=== PATIENT | female | born 1980 | race Caucasian/White ===

== ENCOUNTER 2022-05-09 09:23 | Outpatient (CLI) | payer BC, SELFPAY | END 2022-05-09 09:24 | disposition home or self-care (01) | LOC: NFLDREF 09:25 | PROVIDERS: Visit Provider Obstetrics & Gynecology | DX: Z34.91 Encounter for supervision of normal pregnancy, unspecified, first trimester (principal) | CPT/HCPCS: 84702 ==

== ENCOUNTER 2022-05-26 07:17 | Outpatient (CLI) | payer BC, SELFPAY ==
--- NOTE | 2022-05-26 07:15 | CRLHL7_ITS ---
For Patients: As a result of the Century Cures Act, medical imaging exams and procedure reports are released immediately into your electronic medical record. You may view this report before your referring provider. If you have questions, please contact your health care provider. INDICATION: First trimester scan, establish dates. COMPARISON: None. TECHNIQUE: Real-time fournier-scale imaging of the pelvis was performed. FINDINGS: Sonographic imaging demonstrates a single living intrauterine gestation. The embryo demonstrates a regular cardiac rate measuring 123 beats per minute. The embryo`s crown-rump length measurement of 0.7 cm corresponds to a gestational age of 6 weeks 4 days with a sonographic due date of 01/15/2023. There is a normal-appearing yolk sac. There are no gross abnormalities noted within the embryo at this early state of development. The gestational sac has a normal appearance. There is no perigestational hemorrhage. The amount of fluid within the sac appears appropriate for gestational age. The cervix is closed. Small posterior fundal intramural leiomyoma is present measuring 1.4 cm. The ovaries are of normal size. There are no suspicious fluid collections noted in the cul-de-sac. IMPRESSION: Normal first trimester OB ultrasound exam. Gestational age calculated at 6 weeks 4 days with a sonographic due date of 01/15/2023. Small incidental fibroid measuring 1.4 cm. Dictated by Jayme Alfaro MD @ 05/26/2022 9:43:30 AM (Electronically Signed)
== END 2022-05-26 07:18 | disposition home or self-care (01) ==
LOC: US 07:17
PROVIDERS: PCP Physician Assistant; Visit Provider Obstetrics & Gynecology
DX: Z34.90 Encounter for supervision of normal pregnancy, unspecified, unspecified trimester (principal)
CPT/HCPCS: 76817

== ENCOUNTER 2022-05-26 08:16 | Outpatient (CLI) | payer BC, SELFPAY ==
[2022-05-26 11:52] LABS: Hepatitis B Surface Antigen* Negative (Negative)
[2022-05-26 12:10] LABS: Hepatitis C Virus Antibody* Negative (Negative)
[2022-05-26 14:51] LABS: HIV 1/2/P24 Combo Screen* Negative (Negative)
[2022-05-26 15:36] LABS: Chlamydia DNA Amplified* NOT DETECTED (No Detected); GC DNA Amplified* NOT DETECTED (No Detected)
[2022-05-28 05:39] LABS: Rubella Antibody IgG 12.3 IU/mL
[2022-05-28 12:47] LABS: Rapid Plasma Reagin (RPR) Non Reactive (Non Reactive)
== END 2022-05-26 08:17 | disposition home or self-care (01) ==
PROVIDERS: PCP Physician Assistant; Visit Provider Registered Nurse
DX: Z34.91 Encounter for supervision of normal pregnancy, unspecified, first trimester (principal); Z3A.01 Less than 8 weeks gestation of pregnancy
CPT/HCPCS: 76817; 81420; 86592; 86703; 86762; 86803; 86850; 86900; 86901; 87086; 87340; 87491; 87591; 87624; 88175

== ENCOUNTER 2022-08-30 12:15 | Outpatient (CLI) | payer BC, SELFPAY ==
--- OUTSIDE RECORDS SUMMARY | 2022-08-30 12:17 | XMS_ITS | Clinical Summary ---
:1980 Author Organization [facility] [place] [address] Care Team Providers Name Role Phone Pcp, No Primary Care Provider Unavailable Allergies Active Allergy Reactions Severity Noted Date Comments Hydrocortisone *Unknown 03/14/2021 Sulfa (Sulfonamide Antibiotics) Hives 7 Medications Medication Sig Dispensed Refills Start Date End Date Status fexofenadine (JORDAN) Take 1 tablet by 0 11/23/2015 Active 180 mg tablet mouth once daily if needed for Allergy Symptoms. multivitamin (MVI) Take 1 tablet by 0 01/23/2018 Active tablet mouth once daily. cholecalciferol (VITAMIN Take 1 capsule 0 09/10/2020 Active D) 1,000 unit capsule by mouth once daily. Active Problems Problem Noted Date Personal history of malignant neoplasm of cervix uteri 01/24/2017 Overview: 2001, cone and LEEP for MANAV 3 in 2004; S ee Telephone encounter dated 01/23/2017: Provider Plan: pap annually x 20 years; Due-01/2019 Vitamin D deficiency 10/19/2015 Allergic rhinitis, cause unspecified 05/12/2011 Other acne 09/03/2009 ASCUS with positive high risk HPV cervical 04/05/2005 Overview: 04/2005 Resolved Problems Problem Noted Date Resolved Date Adjustment disorder with mixed anxiety and depressed mood 09/03/2009 Immunizations Name Administration Dates Next Due COVID-19 vaccine ([employer] 10/31/2021, 04/20/2021, 30mcg/0.3mL) PF, MDV Human Papilloma Virus Vaccine 11/20/2007, 07/19/2007, 200607/17/2007 MMR 03/30/1993 Td (Age >=7 Years) 04/20/2005, 06/26/1995 Tdap 03/04/2013 Family History Medical History Relation Name Comments Asthma Brother 1 Allergies Brother 2 Alcohol/Drug Father Psychiatric illness Father suicide Arthritis Maternal Grandmother Allergies Mother Asthma Mother NINA disease Mother Hypothyroidism Mother Osteoporosis Mother Asthma Sister 1 Allergies Sister 2 Relation Name Status Comments Brother 1 Brother 2 Father Maternal Grandmother Mother Sister 1 Sister 2 Social History Tobacco Use Types Packs/Day Years Used Date Current Every Day Smoker Cigarettes 0.25 11 Smokeless Tobacco: Never Used Tobacco Cessation: Counseling Given: Yes Comments: ATQ 05/16/07, 09/03/09, 2012, ATQ 2013 Alcohol Use Standard Drinks/Week Comments Yes 0 (1 standard drink = 0.6 oz pure alcoho l) occasionally Sex Assigned at Date Recorded Not on file Obstetrics History Para Term AB IAB SAB Ectopic Multiple Living Live Births 0 0 0 0 0 0 0 0 0 0 Last Filed Vital Signs Vital Sign Reading Time Taken Comments Blood Pressure 113/75 06/14/2021 7:52 AM CDT Pulse 86 06/14/2021 7:52 AM CDT Temperature 37 ??C (98.6 ??F) 03/14/2021 11:51 AM CDT Respiratory Rate - - Oxygen Saturation 98% 06/14/2021 7:52 AM CDT Inhaled Oxygen Concentration - - Weight 78 kg (172 lb) 06/14/2021 7:52 AM CDT Height 164.5 cm (5' 4.76) 06/14/2021 7:52 AM CDT Body Mass Index 28.83 06/14/2021 7:52 AM CDT Plan of Treatment Health Maintenance Due Date Last Done Comments Pneumococcal series for age 19-64 1987 (1 - PCV) Hepatitis C screening for age 0301/13/1999 18-79 Depression screening for age 12+ 09/10/2021 09/10/2020, 02/2019, 01/23/2018, Additional history exists COVID-19 vaccine series (4 - 12/26/2021 10/31/2021, 021, Booster for Pfizer series) 03/30/2021 BMI (ht and wt on same day) for 06/14/2022 06/14/2021, 11/0 04/2020, age 18+ 06/16/2020, Additional history exists Influenza for age 9-49 07/06/2022 Tetanus booster 03/04/2023 03/04/2013, 04/20/2005, 06/26/1995 Pap test for age 21-65 05/26/2025 05/26/2022, 05/26/2022, 08/08/2019, Additional history exists Tdap Completed 03/04/2013 Results Not on filefrom Last 3 Months Insurance Payer Benefit Plan / Subscriber ID Effective Dates Phone Addre ss Type Group [employer] [place] [id number] 2017-Present [address] [place] [address] (Home) ONEL CHOWDHURY [id number] Care Teams Keno Writer/Runner Relationship Specialty Start Date End Date Pcp, No PCP - General 10/11/18 .
== END 2022-08-30 12:16 | disposition home or self-care (01) ==
LOC: US 12:15
PROVIDERS: PCP Physician Assistant; Visit Provider Pediatrics Neonatal-Perinatal Medicine
DX: O09.519 Supervision of elderly primigravida, unspecified trimester (principal); O09.512 Supervision of elderly primigravida, second trimester; Z3A.20 20 weeks gestation of pregnancy
CPT/HCPCS: 76811

== ENCOUNTER 2022-09-14 11:13 | Outpatient (CLI) | payer BC, SELFPAY ==
--- NOTE | 2022-09-14 11:00 | CRLHL7_ITS ---
For Patients: As a result of the Century Cures Act, medical imaging exams and procedure reports are released immediately into your electronic medical record. You may view this report before your referring provider. If you have questions, please contact your health care provider. INDICATION: Twenty-two weeks with left lower quadrant pain. TECHNIQUE: Ultrasound renal and bladder complete. Guallpa-scale and color Doppler sonographic images were acquired of the kidneys and urinary bladder. COMPARISON: None. FINDINGS: Right kidney: 12 cm. Left kidney: 11 cm. Normal echotexture and cortex. No suspicious masses, stones, or hydronephrosis. Bladder: Normal in caliber and appearance. Color Doppler images demonstrate bilateral ureteral jets. Prevoid bladder volume is 41 mL and postvoid volume is 4 mL. IMPRESSION: Unremarkable renal ultrasound. Dictated by Alonzo Jane MD @ 09/14/2022 12:34:03 PM (Electronically Signed)
--- OUTSIDE RECORDS SUMMARY | 2022-09-14 11:14 | XMS_ITS | Clinical Summary ---
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
== END 2022-09-14 11:14 | disposition home or self-care (01) ==
LOC: US 11:13
PROVIDERS: PCP Physician Assistant; Visit Provider Physician Assistant
DX: O26.892 Other specified pregnancy related conditions, second trimester (principal); R10.9 Unspecified abdominal pain; Z3A.22 22 weeks gestation of pregnancy
CPT/HCPCS: 76770; 87086

== ENCOUNTER 2022-10-24 08:12 | Outpatient (CLI) | payer BC, SELFPAY ==
[2022-10-26 08:42] LABS: Rapid Plasma Reagin (RPR) Non Reactive (Non Reactive)
== END 2022-10-24 08:13 | disposition home or self-care (01) ==
LOC: NFLDREF 08:12
PROVIDERS: PCP Physician Assistant; Visit Provider Obstetrics & Gynecology
DX: Z34.93 Encounter for supervision of normal pregnancy, unspecified, third trimester (principal); Z3A.28 28 weeks gestation of pregnancy
CPT/HCPCS: 86592

== ENCOUNTER 2022-10-31 08:28 | Outpatient (CLI) | payer BC, SELFPAY ==
[2022-10-31 08:39] LABS: Glucose Fasting Check 96 mg/dl (60-115)
[2022-10-31 12:38] LABS: Glucose 1 Hour Gest 165 mg/dl (70-180)
[2022-10-31 12:39] LABS: Glucose GTT-Gestational 3 Hr 126 mg/dl (70-140)
== END 2022-10-31 08:29 | disposition home or self-care (01) ==
PROVIDERS: PCP Physician Assistant; Visit Provider Obstetrics & Gynecology
DX: Z34.90 Encounter for supervision of normal pregnancy, unspecified, unspecified trimester (principal); R89.9 Unspecified abnormal finding in specimens from other organs, systems and tissues
CPT/HCPCS: 82951; 82952

== ENCOUNTER 2022-12-07 08:04 | Outpatient (CLI) | payer BC, SELFPAY ==
--- NOTE | 2022-12-07 08:15 | CRLHL7_ITS ---
For Patients: As a result of the Cures Act, medical imaging exams and procedure reports are released immediately into your electronic medical record. You may view this report before your referring provider. If you have questions, please contact your health care provider. INDICATION: Third trimester scan, evaluate growth. Advanced maternal age. COMPARISON: 08/30/2022 TECHNIQUE: Real time fournier scale imaging of the fetus was performed. FINDINGS: Sonographic imaging demonstrates a single living intrauterine gestation. Fetus demonstrates a regular cardiac rate of 145 beats per minute. Fetus has an oblique breech position. The placenta lies posteriorly. Amniotic fluid volume appears normal and there is a single deepest vertical pocket: 6.6 cm. The estimated weight is 2616gm which lies at the 64th %. On the prior OB ultrasound exam dated 08/30/2022 the estimated weight was at the 69th%. BPD 45th percentile. HC 48th percentile. AC 88th percentile. FL 21st percentile. The HC/AC ratio measures 1.00 range (0.93-1.11). IMPRESSION: Sonographic gestational age 35 weeks 0 days and sonographic due date of 01/11/2023. Good correlation with dates. Normal interval growth. Estimated weight 64th percentile. Abdominal circumference 88th percentile. Dictated by Jayme Alfaro MD @ 12/07/2022 2:17:26 PM (Electronically Signed)
== END 2022-12-07 08:05 | disposition home or self-care (01) ==
LOC: US 08:05
PROVIDERS: PCP Physician Assistant; Visit Provider Obstetrics & Gynecology
DX: O09.513 Supervision of elderly primigravida, third trimester (principal); Z3A.35 35 weeks gestation of pregnancy
CPT/HCPCS: 76816

== ENCOUNTER 2022-12-22 09:38 | Outpatient (CLI) | payer BC, SELFPAY ==
[2022-12-23 14:26] LABS: Strep B DNA Probe NEGATIVE (Negative)
[2022-12-24 03:50] LABS: Strep B Pen/Amox Allergy No
== END 2022-12-22 09:39 | disposition home or self-care (01) ==
LOC: NFLDREF 09:38
PROVIDERS: PCP Physician Assistant; Visit Provider Obstetrics & Gynecology
DX: O09.523 Supervision of elderly multigravida, third trimester (principal); Z3A.36 36 weeks gestation of pregnancy
CPT/HCPCS: 87081; 87653

== ENCOUNTER 2023-01-10 08:09 | Inpatient (IN) | payer BC, SELFPAY ==
[2023-01-10] VITALS (7 sets, daily range): BP systolic 117–145; BP diastolic 58–80; PULSE 72–96; RESP 0–20; TEMP 36.8–37; BMI 34.7
[2023-01-10] MEDS: miSOPROStoL 25 MCG/0.25 TABLET VAGINAL ×4 (09:10→21:13)
[2023-01-10 09:21] LABS: SARS PCR* Negative SARS-CoV-2 (Negative)
[2023-01-10 10:00] LABS: Basophils Absolute Auto 0.01 K/uL (0.00-0.30); Basophils Percent Auto 0.1 % (0.0-3.0); Eosinophils Percent Auto 1.2 % (0.0-7.0); Hematocrit 35.1 % (33.0-51.0); Hemoglobin* 11.8 gm/dL (12.0-16.0); Immature Granulocytes Abs Auto 0.05 K/uL (0.00-0.30); Immature Granulocytes Pct Auto 0.6 %; Mean Corpuscular HGB Conc 34 gm/dL (32-36); Mean Corpuscular Hemoglobin 30 pg (26-34); Mean Corpuscular Volume 89 fL (80-100); Monocytes Percent Auto 7.7 % (0.0-11.0); Neutrophils Percent Auto 68.4 % (42.0-72.0); Platelet Count* 226 K/uL (140-440); RDW Coefficient of Variation % 14.5 % (11.5-15.5); Red Blood Count 3.95 m/uL (4.00-5.20); White Blood Count* 8.19 K/uL (4.50-11.00)
[2023-01-10 10:03] LABS: Slide Review Reflex No
[2023-01-10] MEDS: CALCIUM CARBONATE 500 MG CHEW PO ×3 (12:18→23:25)
--- NOTE | 2023-01-10 18:39 | W.PM.LDBA ---
Subjective History of Present Illness Time Seen by Provider: 09:00 Date Seen: 01/10/23 Narrative: Patient is being admitted to Labor and Delivery for induction of labor secondary to AMA. She is a 42 year old at 39 3/7 weeks gestation. Her full history and physical was dictated by Dr. Marsh on 12/26/22. Please see this for details. G2, P0 010 Spouse ( 09/24/22): Dilip. Baby: boy 1. Conceived on Clomid! 2. Advanced maternal age. Recommended daily baby aspirin starting at 12 weeks. MaterniT : no increased risk for aneuploidy. Male. Level 2 u/s, scheduled: 08/30/2022, normal USN for EFW 12/07/2022: Breech/Oblique, SDP 6.6cm. EFW: 2616 g, 5 lb 12 oz, 64%. BPD 45%, HC 48%, AC 88%, FL 21%. on 12/26/22 by bedside US VERTEX! Weekly NSTs starting at 36 weeks Recommend delivery at 39-40 weeks 3. Tobacco use. Has decreased to 1-2 cigarettes per day. Working on quitting. 4. History of abnormal Pap with LEEP and cone in 2000 and 2004. Pap performed at 1st OB. 05/26/22: ASCUS pap, neg HPV: pap w/ HPV at her 6 week pp visit. 5. History of depression in 2004. Has not been on medications since 2005. Doing well. 6. Fibroid on 1st ultrasound measuring 1.2 x 0.9 x 1.4 cm 7. 10/24/22: Elevated 1hr GTT: 155 3hr GTT 10/31/22: F 94, 1hr 165, 2hr 154, 3hr 126: All normal. Flu: Declines COVID: Completed and boosted x1 TDap: 11/09/22 Covid infection, 09/27/22 OB - Problem Based A/P Additional Plan (1) AMA (advanced maternal age) primigravida 35+: Status: Acute Delivery/Labor/Induction Plan Plan: induction Induction method: per misoprostol protocol (vaginal) OB Exam Physical Exam Vital signs: Temp Pulse Resp BP 98.6 F 75 16 133/74 01/10/23 15:17 01/10/23 15:17 01/10/23 15:17 01/10/23 15:17 Detailed Labor and Delivery Exam Patient Gravid: Yes Dilation (cm): 0 Effacement (%): 50 Cervix position: anterior Consistency: firm Contraction Frequency: none Fetus (Single) Station: -3 Heart Rate Baseline: 150 Monitor Accelerations: Present Monitor Decelerations: None Tanning Wheel Filler Variability: Moderate (6-25)
--- NOTE | 2023-01-10 18:42 | PM.OBPNL ---
Subjective Time Seen by Provider: 18:42 Date Seen: 01/10/23 Narrative: Patient feeling uterine cramping, like bad menstrual cramps. Fetus remains active. Has had a total of 3 doses vaginal misoprostol so far today. Objective Vital Signs: Last Vital Signs Temp 98.6 F 01/10/23 15:17 Pulse 75 01/10/23 15:17 Resp 16 01/10/23 15:17 BP 133/74 01/10/23 15:17 Pelvic Exam Dilation (cm): 1 (loose) Effacement (%): 85 Station: -3 Comments: Anterior Contractions Monitor mode: External Contraction Frequency: 2 minutes Contraction pattern: Regular Contraction intensity: Moderate Pitocin Rate (mU/min): 0 Assessment Station: -3 (? OP position) Heart Rate Baseline: 150 Monitor Accelerations: Present Monitor Decelerations: Variable (occasional) Labor Progress: Good pogress Plan Plan: Expectant management for now. Continue misoprostol per protocol if contractions space.
[2023-01-10] MEDS: LACTATED RINGERS 1000 ML 1,000 ML 450 ML IV (23:19)
[2023-01-11] VITALS (67 sets, daily range): BP systolic 97–150; BP diastolic 48–76; PULSE 79–117; RESP 16–18; TEMP 36.4–37.1; O2SAT 93–100
--- NOTE | 2023-01-11 02:02 | P.OBPN_ITS ---
Subjective Time Seen by Provider: 02:02 Date Seen: 01/11/23 Narrative: Patient rates contractions at 6/10. Has had 4 doses of vaginal misoprostol for cervical ripening. Objective Vital Signs: Last Vital Signs Temp 98.3 F 01/10/23 21:20 Pulse 72 01/10/23 21:20 Resp 20 01/10/23 21:20 BP 117/58 L 01/10/23 21:20 Pelvic Exam Dilation (cm): 1 (loose) Effacement (%): 100 Station: -3 Comments: ballotable, cervical rim feels scarred due to prior LEEP/cone Contractions Monitor mode: External Contraction pattern: Regular Contraction intensity: Moderate Pitocin Rate (mU/min): 0 Assessment Station: -3 (? OP position) Status: Category ll Heart Rate Baseline: 150 Residential Variability: Moderate (6-25) Monitor Accelerations: Present Monitor Decelerations: Variable (occasional) Tracing Comments: Periods of late decelerations, mixed with variables, that resolve Plan Plan: Unable to AROM and place internals due to ballotable station. Additional misoprostol not indicated due to occasional FHR decelrations. Pitocin administration not yet indicated due to unfavorable Zaidi score. Cook catheter placed, 60 mL in uterine balloon, 40 mL in vaginal balloon. Continue close monitoring.
[2023-01-11] MEDS: hydrOXYzine pamoate 25 MG CAPSULE 100 MG PO (02:06)
[2023-01-11] MEDS: LACTATED RINGERS 1000 ML 1,000 ML 325 ML IV (03:08)
[2023-01-11] MEDS: ROPIVACAINE 0.2% 100 ml 100 ML 12 MG EPIDURAL (03:44)
[2023-01-11] MEDS: ROPIVACAINE 0.2 % PF 10 ML INJ 20 MG EPIDURAL (03:44)
[2023-01-11] MEDS: LIDOCAINE 2% (PF) 5 ML VIAL EPIDURAL (03:44)
--- NOTE | 2023-01-11 03:44 | PM.ANBPRC ---
[facility] Medical History (Updated 06/23/22 @ 13:06 by Erum Costa MD) Allergic rhinitis (05/12/11) AMA (advanced maternal age) primigravida 35+ History of abnormal cervical Pap smear History of depression History of hysterosalpingogram History of LEEP (loop electrosurgical excision procedure) of cervix complicating Other acne (09/03/09) care Vitamin D deficiency (10/19/15) Surgical History (Updated 05/26/22 @ 09:16 by Diane Osorio CNP) History of cone biopsy of cervix Status post dilation and curettage (08/2021) Social History Smoking Status: Current every day smoker Little interest or pleasure in doing things: several days Feeling down, depressed, or hopeless: not at all Meds Home Medications and Allergies Home Medications Medication Instructions Recorded Confirmed Type docosahexaenoic acid 200 mg 200 mg PO DAILY 05/26/22 01/10/23 History capsule ( DHA) acetaminophen 500 mg tablet 1,000 mg PO Q6H PRN 06/23/22 01/10/23 History (Tylenol Extra Strength) loratadine 10 mg tablet 10 mg PO QDAY 06/23/22 01/10/23 History aspirin 81 mg capsule 81 mg PO QDAY 07/20/22 01/10/23 History cholecalciferol (vitamin D3) 25 25 mcg PO QDAY 09/14/22 01/10/23 History mcg (1,000 unit) capsule magnesium 250 mg tablet 500 mg PO QHS 09/14/22 01/10/23 History ascorbic acid (vitamin C) 1,000 mg 1 g PO Q6H 09/26/22 01/10/23 History capsule calcium carbonate 500 mg calcium 1,000 mg PO QDAY 12/07/22 01/10/23 History (1,250 mg) chewable tablet famotidine-Ca carb-mag hydrox 10 1 tab PO QDAY PRN 01/05/23 01/10/23 History mg-800 mg-165 mg chewable tablet (Pepcid Complete) Allergies Allergy/AdvReac Type Severity Reaction Status Date / Time Sulfa (Sulfonamide Allergy Severe Hives Verified 01/10/23 08:36 Antibiotics) hydrocortisone Allergy Mild Verified 01/10/23 08:36 Results Labs Labs: Laboratory Results - last 24 hr 01/10/23 01/10/23 01/10/23 08:35 09:49 09:49 WBC 8.19 RBC 3.95 L Hgb 11.8 L Hct 35.1 MCV 89 MCH 30 MCHC 34 RDW Coeff of Star 14.5 Plt Count 226 Neut % (Auto) 68.4 Lymph % (Auto) 22.0 [place] % (Auto) 7.7 Eos % (Auto) 1.2 Baso % (Auto) 0.1 Neut # (Auto) 5.60 Lymph # (Auto) 1.80 [place] # (Auto) 0.60 Eos # (Auto) 0.10 Baso # (Auto) 0.01 SARS-CoV-2 (PCR) Negative SARS-CoV-2 Blood Type O Positive Antibody Screen NEGATIVE Vital Signs Vital Signs: Last Vital Signs Temp 98.3 F 01/10/23 21:20 Pulse 108 H 01/11/23 03:42 Resp 20 01/10/23 21:20 BP 125/62 01/11/23 03:42 Pulse Ox 100 01/11/23 03:43 Weight: 94.665 kg Height: 165.1 cm Anesthesia Procedures Epidural Insertion Patient Location: OB Start Time: 03:00 Stop Time: 03:45 Start Date: 01/11/23 Stop Date: 01/11/23 Reason for Block: procedure for pain Patient Position: sitting Performed By: Festus Camilo Preanesthetic Checklist: IV checked, risks and benefits discussed, surgical consent, monitors and equipment checked, pre-op evaluation, timeout performed and anesthesia consent Prep: chlorhexidine gluconate Monitoring: blood pressure monitoring, continuous pulse oximetry and heart rate Approach: midline Vertebral Space: lumbar (1-5) Epidural Technique: KASIE air Needle Type: Tuohy needle Injection Technique: continuous catheter Needle gauge: 17 Needle Length (cm): 10 cm Needle Insertion Depth (cm): 7 Catheter Gauge: 19 Catheter Type: multi-orifice Catheter at skin depth (cm): 13 Test Dose Result: negative and lidocaine 1.5% with epinephrine 1 to 200,000
[2023-01-11] MEDS: PHENYLEPHRINE 100 MCG/ML SYRINGE IVP ×2 (03:56→04:28)
[2023-01-11] MEDS: ePHEDrine sulfate 5 MG/ML inj 10 MG IVP (04:37)
[2023-01-11] MEDS: ONDANSETRON 2 MG/ML inj 4 MG IV (04:40)
--- NOTE | 2023-01-11 04:45 | PM.OBPNL ---
Subjective Time Seen by Provider: 04:10 Date Seen: 01/11/23 Narrative: Called to patient's room at 0406 to evaluate FHR strip. Patient had experienced SROM at 0250, copious clear fluid. heart rate strip was reassuring, with scattered acclerations and good variability. Epidural was placed at 0344. Repetitive late decelerations, deep, began at 0350. These did not resolve with maternal repositioning or administration of pessors. Patient has good relief from labor pain with epidural. Objective Vital Signs: Last Vital Signs Temp 98.3 F 01/10/23 21:20 Pulse 93 01/11/23 04:44 Resp 20 01/10/23 21:20 BP 121/56 L 01/11/23 04:44 Pulse Ox 99 01/11/23 03:48 Pelvic Exam Dilation (cm): 4-5 cm Effacement (%): 100 Station: -2 Contractions Monitor mode: External Contraction pattern: Regular Contraction intensity: Strong/Firm Pitocin Rate (mU/min): 0 Assessment Station: -2 (? OP position) Status: Category lll Heart Rate Baseline: 150 Sales Floor Associate Variability: Moderate (6-25) Monitor Accelerations: Absent Monitor Decelerations: Late (occasional) Plan Plan: Recommend proceeding with delivery. Relative risks and benefits, as well as indication, discussed with patient. Informed consent obtained. O.R. team, anesthesia, and Peds provider notified by Fiberline Supervisor of unscheduled .
[2023-01-11] MEDS: CEFAZOLIN 2 GM INJ IVP (05:17)
--- NOTE | 2023-01-11 06:37 | PM.OBPRCCS ---
Procedure Pre-op/Post-op diagnoses: Pre-Op/Post-Op Diagnoses Operation Date: 01/11/23 05:45 <No data on this case meets the specified criteria> Procedure Done: Global Procedure Details: Procedures Operation Date: 01/11/23 05:45 Actual Procedure Side Surgeon p Section Lupe Julio MD Estimated blood loss (mL): 363 Disposition: floor Anesthesia type: Epidural Complications: None. Narrative: PREOPERATIVE DIAGNOSES: 1. Intrauterine at 39 4/7 weeks' gestation. 2. Nonreassuring heart tones/repetitive late heart rate decelerations remote from delivery. POSTOPERATIVE DIAGNOSES: 1. Intrauterine at 39 4/7 weeks' gestation. 2. Nonreassuring heart tones/repetitive late heart rate decelerations remote from delivery. NAME OF PROCEDURE: Primary low transverse section. SURGEON: Sumanth. ANESTHESIA: Epidural. COMPLICATIONS: None. ESTIMATED BLOOD LOSS: 363 mL. DRAINS: Crespo to gravity. FINDINGS: Live-born male infant, cephalic presentation, OP presentation, nuchal cord x1, Apgars 9 and 9 at 1 and 5 minutes respectively. weight 6 lb 14 oz. Normal appearing uterus, tubes, and ovaries. PROCEDURE: After obtaining informed consent, the patient was taken to the operating room where spinal anesthesia was obtained and found to be adequate. She was prepared and draped in the normal sterile fashion in the dorsal supine position with a leftward tilt. A Pfannenstiel skin incision was made with a scalpel. This incision was carried down to the underlying layer of fascia with the Bovie. The fascia was incised in the midline and the incision extended laterally. The superior and inferior aspects of the fascial incision were grasped with Augustina clamps, elevated and the underlying rectus muscles dissected off sharply and with electrocautery. The rectus muscles were then in the midline. The Grover O retractor was then placed into the incision. The lower uterine segment was then incised in a transverse fashion with the scalpel. Upon entry into the uterus, clear amniotic fluid was noted. The uterine incision was extended laterally with blunt finger fractionation. The infant's head was delivered atraumatically, followed by the remainder of the infant's body. The nose and mouth were suctioned with the bulb suction. The cord was doubly clamped and cut, and the was handed off the field to Dr. Reynolds for evaluation. The placenta was delivered spontaneously with umbilical cord traction and fundal massage. The uterus was cleared of all clots and debris. The uterine incision was reapproximated in a running locking fashion with a 0 chromic suture. A 2nd layer of the same suture was used to imbricate in horizontal fashion. The gutters were irrigated and suctioned. All instruments and retractors were removed. The anterior peritoneum was reapproximated in a running fashion with a 3-0 Vicryl suture. The subfascial tissues were carefully inspected and hemostasis assured. The fascia was reapproximated in a running fashion with a looped 0 Maxon suture. The subcutaneous tissues were copiously irrigated. Hemostasis was assured. The subcutaneous fat layer was reapproximated with interrupted sutures of 3-0 plain gut. The skin was closed in a subcuticular fashion with 4-0 Vicryl. Surgical glue and dressing were applied. The patient tolerated the procedure well. Sponge, lap, needle, and instrument counts were reported as correct x2. The patient was taken to the recovery room, awake, and in stable condition. She did receive 2 grams of IV Ancef preoperatively and 30 mg IV Toradol at the conclusion of the procedure. PATHOLOGY: Placenta.
--- NOTE | 2023-01-11 06:54 | P.NB_ITS ---
Nerve Block Nerve Block Time Seen by Provider: 06:55 Date Seen: 01/11/23 Type of block requested by surgeon for post-operative analgesia: TAP Side: bilateral Time out performed: Yes Verification of patient name: Yes Verification of date of : Yes Site marking: site marked Name of person performing procedure: Festus Marciay Continuous monitoring Was continuous monitoring of O2 sat, B/P, site monitor, recorded every 15 minutes?: Yes Procedure Checklist: sterile prep, needles and gloves Ultrasound guided. Images saved: Yes Medications given in 5ml increments after negative aspiration: Marcaine %: 0.25 mL: 30 and Exparel mL: 10 Patient tolerated procedure well: Yes Block Charges Block Charge (with Pro Fee): TAP Bilateral Use of Ultrasound Machine for Block: Yes- US Guidance/pain block
--- NOTE | 2023-01-11 06:56 | W.ANESCHARGE ---
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
[2023-01-11] MEDS: DOCUSATE SODIUM 100 MG CAPSULE PO (08:58)
[2023-01-11] MEDS: LACTATED RINGERS 1000 ML 1,000 ML 125 ML IV (09:42)
[2023-01-11] MEDS: KETOROLAC 30 MG/ML inj IVP ×3 (12:16→23:59)
[2023-01-12] VITALS (9 sets, daily range): BP systolic 112–129; BP diastolic 70–75; PULSE 87–102; RESP 16–18; TEMP 36.8–37; O2SAT 96–98
[2023-01-12] MEDS: KETOROLAC 30 MG/ML inj IVP ×2 (05:31→11:39)
[2023-01-12 07:10] LABS: Hemoglobin* 10.8 gm/dL (12.0-16.0)
--- NOTE | 2023-01-12 08:40 | PM.OBPNCS1 ---
OB - PN: A/P Assessment and Plan (1) AMA (advanced maternal age) primigravida 35+: Status: Acute Plan day: 1 Plan: routine postop care OB - PN: Subj Subjective Date Seen: 01/12/23 Patient comments: no complaints, pain well controlled, tolerating diet and flatus present status: (pumping as baby is having trouble latching and she isn't making any milk yet) feeding status: expressed and bottle feeding Narrative: Day 1:? Vaginal Delivery at 39 and 4/7 weeks.? ?? Complications:? none? The patient feels well.? The pain is well controlled with current medications.? She has no new complaints.? Urinary output is adequate and she is voiding without difficulty.? Has a good appetite, is tolerating a general diet, is passing flatus, and has not had a bowel movement.? Has scant amount of rubra lochia.? She is ambulating well.?She is planning to breastfeed but baby is having difficulty latching. She states that she isn't making any milk yet so she is pumping for stimulation. Encouraged her to continue to latch baby and to work with today. OB - PN: Obj Exam Physical Exam: Vital signs: Temp Pulse Resp BP Pulse Ox O2 Del Method 98.3 F 87 16 118/75 96 01/12/23 03:48 01/12/23 03:48 01/12/23 05:53 01/12/23 03:48 01/12/23 03:48 01/12/23 03:48 Narrative: GENERAL APPEARANCE:? normal affect, alert, no distress? MOOD:? appropriate? CHEST:? clear to auscultation and percussion? HEART:? regular rate and rhythm? ABDOMEN:? soft, non-tender the uterine fundus is U/1 and is appropriate for the stage of recovery.?Incision covered by dressing. dressing clean, dry, and intact. She can remove the dressing in the shower today. EXTREMITIES:? normal and no edema OB - PN: Obj Data Labs Labs: Laboratory Results - last 24 hr 01/12/23 07:03 Hgb 10.8 L
[2023-01-12] MEDS: DOCUSATE SODIUM 100 MG CAPSULE PO (10:47)
[2023-01-12] MEDS: ACETAMINOPHEN 500 MG TABLET 1000 MG PO (17:48)
[2023-01-12] MEDS: OXYCODONE 5 MG TABLET PO (17:48)
[2023-01-12] MEDS: IBUPROFEN 600 MG TABLET PO (21:19)
[2023-01-13 00:10] VITALS: BP 125/81; PULSE 102; RESP 16; TEMP 36.9
[2023-01-13] MEDS: ACETAMINOPHEN 500 MG TABLET 1000 MG PO ×4 (00:13→18:47)
[2023-01-13] MEDS: OXYCODONE 5 MG TABLET PO ×2 (00:13→06:40)
[2023-01-13] MEDS: IBUPROFEN 600 MG TABLET PO ×4 (03:39→23:22)
--- NOTE | 2023-01-13 08:35 | P.DS_ITS ---
DS: Providers Provider Date Seen: 01/14/23 Date of admission: 01/10/23 08:09 Primary care physician: TOMEKA Bruce Admitting Clinician: Lupe Julio MD Attending Physician on discharge: Lupe Julio MD Date of Discharge: 01/14/23 DS: Diagnosis Discharge Diagnosis (1) S/P section: Status: Acute (2) Anemia associated with acute blood loss: Status: Acute Exam Narrative: Exam Narrative: General: Pleasant, no acute distress Heart: Regular rate and rhythm, no murmur or gallop Lungs: Clear to auscultation bilaterally Abdomen: Soft, nontender, fundus well below umbilicus, normoactive bowel sounds, incision clean, dry, and intact Lower extremities: 2+ edema bilaterally, compression stockings in place Const: Vital Signs, click to edit/add: Vital Signs - 24 hr 01/12/23 08:44 01/12/23 16:23 01/13/23 00:10 Temperature 98.6 F 98.3 F 98.4 F Pulse Rate [Blood Pressure Cuff] 91 102 H 102 H Respiratory Rate 18 18 16 Blood Pressure [Le ft Arm] 112/70 129/72 125/81 Pulse Oximetry 97 98 Oxygen Delivery Me thod Room Air Room Air Room Air OB - DS: Summary Hospital Course Hospital Course: Ro is of 42-year-old G2 now P 1-0-1-1 woman who presented on 01/10/2023 at 39 weeks, 3 days gestation for induction of labor for indication of advanced maternal age. She had induction of labor for indication of nonreassuring heart rate on 01/11/2023. She was delivered of a male in OPP presentation with Apgars of 9 and 9, weight 6 lb and 14 oz. EBL was 363 mL. Her hemoglobin on postoperative day 1 was 10.8. She was started on supplemental iron. Her course has been notable for difficulties with . She has inverted nipples. She opted to stay until POD #3 for this, and for help with pain control. She did not require nicotine replacement, and plans to quit smoking entirely as of this hospitalization. Today, on day 3, she is doing well. Pain is adequately controlled on oral agents. She is doing better with today, and has established a latch. She was able to have a bowel movement and is passing flatus. Ob problem list: 1. Conceived on Clomid! 2. Advanced maternal age. Recommended daily baby aspirin starting at 12 weeks. MaterniT : no increased risk for aneuploidy. Male. Level 2 u/s, scheduled: 08/30/2022, normal USN for EFW 12/07/2022: Breech/Oblique, SDP 6.6cm. EFW: 2616 g, 5 lb 12 oz, 64%. BPD 45%, HC 48%, AC 88%, FL 21%. on 12/26/22 by bedside US VERTEX! Weekly NSTs starting at 36 weeks Recommend delivery at 39-40 weeks 3. Tobacco use. Has decreased to 1-2 cigarettes per day. Working on quitting. 4. History of abnormal Pap with LEEP and cone in 2000 and 2004. Pap performed at 1st OB. 05/26/22: ASCUS pap, neg HPV: pap w/ HPV at her 6 week pp visit. 5. History of depression in 2004. Has not been on medications since 2005. Doing well. 6. Fibroid on 1st ultrasound measuring 1.2 x 0.9 x 1.4 cm 7. 10/24/22: Elevated 1hr GTT: 155 3hr GTT 10/31/22: F 94, 1hr 165, 2hr 154, 3hr 126: All normal. Peripartum Data Procedures: Procedures Operation Date: 01/11/23 05:45 Actual Procedure Side Surgeon p Section Lupe Julio MD Gender: Male Time Spent with Patient Time attestation: Total time spent providing and/or coordinating discharge services: Discharge Plan Discharge Disposition: Home, Self-Care Date of Admission: 01/10/23 08:09 Attending Provider on Discharge: Siena Anderson Primary Care Provider: Kerry Escobar Condition: Stable Anticipated Discharge Date/Time: 01/14/23 13:22 Discharge Medications: New docusate sodium 100 mg Capsule 100 mg PO DAILY Qty: 30 0RF ferrous sulfate 325 mg (65 mg iron) tablet,delayed release (DR/EC) 325 mg PO DAILY Qty: 20 0RF ibuprofen 600 mg Tablet 600 mg PO Q6H PRN (Reason: Pain) Qty: 60 0RF oxycodone 5 mg Tablet 5 - 10 mg PO Q4H PRN (Reason: Pain) Qty: 20 0RF Continued loratadine 10 mg tablet 10 mg PO QDAY acetaminophen [Tylenol Extra Strength] 500 mg tablet 1,000 mg PO Q6H PRN magnesium 250 mg tablet 500 mg PO QHS cholecalciferol (vitamin D3) 25 mcg (1,000 unit) capsule 25 mcg PO QDAY calcium carbonate 500 mg calcium (1,250 mg) tablet,chewable 1,000 mg PO QDAY DHA 200 mg capsule 200 mg PO DAILY ascorbic acid (vitamin C) 1,000 mg capsule 1 g PO Q6H Pepcid Complete 10-800-165 mg tablet,chewable 1 tab PO QDAY PRN Discontinued aspirin 81 mg capsule 81 mg PO QDAY Discharge Orders: Discharge Order (Routine); Ordered 01/14/23 Ordered By: Siena Anderson Patient Education: OB /Breast Feeding Activity Detail: No lifting greater than 20 lbs for 6 weeks. No submersion of incision under water for 3 [address] while using narcotic pain medications. Nothing per vagina X 6 weeks. Follow Up Appointments: Kerry Escobar PA [Primary Care Provider] - Siena Anderson MD [Staff Physician] - Forms: [facility] Info Instructions
[2023-01-13 09:15] VITALS: BP 123/72; PULSE 90; RESP 18; TEMP 36.9; O2SAT 97
[2023-01-13] MEDS: DOCUSATE SODIUM 100 MG CAPSULE PO (09:35)
[2023-01-13] MEDS: SIMETHICONE 80 MG TAB.CHEW PO ×2 (09:35→19:00)
--- NOTE | 2023-01-13 10:49 | P.OBPN_ITS ---
OB - PN: A/P Assessment and Plan (1) S/P section: Status: Acute Assessment and Plan: Appropriate postoperative course. Encourage ambulation today. (2) Anemia associated with acute blood loss: Status: Acute Assessment and Plan: Begin ferrous sulfate once daily today. Plan Plan: routine postop care Comments: Anticipate discharge tomorrow. OB - PN: Subj Subjective Date Seen: 01/13/23 Interval history: Ro is a 43-year-old woman who is postoperative day 2 status post primary low- transverse section for indication of non reassuring status in the setting of induction of labor for advanced maternal age at term. Ob problem list: 1. Conceived on Clomid! 2. Advanced maternal age. Recommended daily baby aspirin starting at 12 weeks. MaterniT : no increased risk for aneuploidy. Male. Level 2 u/s, scheduled: 08/30/2022, normal USN for EFW 12/07/2022: Breech/Oblique, SDP 6.6cm. EFW: 2616 g, 5 lb 12 oz, 64%. BPD 45%, HC 48%, AC 88%, FL 21%. on 12/26/22 by bedside US VERTEX! Weekly NSTs starting at 36 weeks Recommend delivery at 39-40 weeks 3. Tobacco use. Has decreased to 1-2 cigarettes per day. Working on quitting. 4. History of abnormal Pap with LEEP and cone in 2000 and 2004. Pap performed at 1st OB. 05/26/22: ASCUS pap, neg HPV: pap w/ HPV at her 6 week pp visit. 5. History of depression in 2004. Has not been on medications since 2005. Doing well. 6. Fibroid on 1st ultrasound measuring 1.2 x 0.9 x 1.4 cm 7. 10/24/22: Elevated 1hr GTT: 155 3hr GTT 10/31/22: F 94, 1hr 165, 2hr 154, 3hr 126: All normal. Narrative: Today's Ro's birthday! She reports that pain is between 4 and 6. She is taking only oral medications. Her course has been notable for difficulties with . She has inverted nipples. She is working on it. She has not required nicotine replacement, and plans to quit smoking entirely as of this hospitalization. She is feeling very tired. She plans to walk the halls today. She denies any difficulties with urination. She is tolerating regular diet and is passing flatus. OB - PN: Obj Exam Physical Exam: Vital signs: Temp Pulse Resp BP Pulse Ox O2 Del Method 98.4 F 90 18 123/72 97 01/13/23 09:15 01/13/23 09:15 01/13/23 09:15 01/13/23 09:15 01/13/23 09:15 01/13/23 09:15 Narrative: General: Pleasant, no acute distress Heart: Regular rate and rhythm, no murmur or gallop Lungs: Clear to auscultation bilaterally Abdomen: Soft, nontender, fundus well below umbilicus. Normoactive bowel sounds. Incision clean, dry, and intact. Lower extremities: 2+ edema bilaterally, no erythema OB - PN: Obj Data Labs Labs: Hemoglobin 10.8 yesterday
[2023-01-13 15:53] VITALS: BP 120/75; PULSE 84; RESP 18; TEMP 37; O2SAT 98
[2023-01-13] MEDS: polyethylene glycoL 3350 17 GM PACK PO (19:00)
[2023-01-13 23:25] VITALS: BP 124/78; PULSE 86; RESP 16; TEMP 36.8
[2023-01-14] MEDS: ACETAMINOPHEN 500 MG TABLET 1000 MG PO ×2 (06:12→12:17)
[2023-01-14] MEDS: SIMETHICONE 80 MG TAB.CHEW PO (06:51)
[2023-01-14 07:44] VITALS: BP 97/76; PULSE 86; PULSE 94; RESP 16; TEMP 36.9; O2SAT 98
[2023-01-14] MEDS: IBUPROFEN 600 MG TABLET PO (08:01)
[2023-01-14] MEDS: DOCUSATE SODIUM 100 MG CAPSULE PO (08:02)
[2023-01-14] MEDS: OXYCODONE 5 MG TABLET PO ×2 (08:02→12:18)
[2023-01-14] MEDS: FERROUS SULFATE 325 MG TABLET PO (08:02)
== END 2023-01-14 14:20 | disposition home or self-care (01) | DRG 540 ==
PROVIDERS: Admitting Provider Obstetrics & Gynecology; PCP Physician Assistant; Visit Provider Obstetrics & Gynecology
PROC: 10D00Z1 Extraction of Products of Conception, Low, Open Approach (ICD-10-PCS; CPT 59514; principal; 2023-01-11 05:30)
DX: O76 Abnormality in fetal heart rate and rhythm complicating labor and delivery (principal); Z3A.39 39 weeks gestation of pregnancy; Z37.0 Single live birth; D62 Acute posthemorrhagic anemia; F17.210 Nicotine dependence, cigarettes, uncomplicated; O90.81 Anemia of the puerperium; O99.334 Smoking (tobacco) complicating childbirth
CPT/HCPCS: 01967; 01968; 36415; 59200; 76942; 85018; 85025; 86850; 86900; 86901; 87635; 88307; 99140; A9270; C1726; J0690; J1100; J1885; J2274; J2370; J2405; J2590; J2795; J3010; J7120